=== PATIENT | female | born 1990 ===

== ENCOUNTER 2017-01-31 11:51 | Emergency (ER) | payer OTHER ==
--- NOTE | 2017-01-31 12:13 | C.PDOC ---
History Of Present Illness 26-year-old female, presents to the emergency department with complaints of chest pain. Patient states she has been experiencing chest pain for the past few days, that is non-radiating and intermittent in nature. Pain is worse w/ movement and deep breaths. Patient has not taken any medication for pain. Denies trauma. Of note, patient is on control (DMPA Q3 months). Time Seen by Provider: 01/31/17 12:09 Chief Complaint (Nursing): Chest Pain History Per: Patient History/Exam Limitations: no limitations Onset/Duration Of Symptoms: Days Current Symptoms Are (Timing): Still Present Severity: Moderate Past Medical History Reviewed: Historical Data, Nursing Documentation, Vital Signs Vital Signs: Last Vital Signs Temp 97.8 F 01/31/17 14:00 Pulse 65 01/31/17 14:00 Resp 20 01/31/17 14:00 BP 107/62 01/31/17 14:00 Pulse Ox 99 01/31/17 14:00 Family History: States: No Known Family Hx Review Of Systems Constitutional: Negative for: Fever, Chills Cardiovascular: Positive for: Chest Pain Gastrointestinal: Negative for: Nausea, Vomiting Skin: Negative for: Rash Neurological: Negative for: Weakness, Numbness Physical Exam - Physical Exam Appears: Non-toxic, No Acute Distress Skin: Warm, Dry, No Rash Head: Atraumatic Eye(s): bilateral: Normal Inspection Nose: Normal Oral Mucosa: Moist Neck: Normal ROM Cardiovascular: Rhythm Regular, No Murmur Respiratory: No Accessory Muscle Use Extremity: Normal ROM Neurological/Psych: Oriented x3 ED Course And Treatment - Laboratory Results Result Diagrams: 01/31/17 12:50 01/31/17 12:50 O2 Sat by Pulse Oximetry: 100 Medical Decision Making Medical Decision Making: EKG Rate 97bpm Rhythm NSR Interpret Normal [place]. Normal intervals. No aciute ischemia. 1330 pt reports feeling better after toradol. disc results, plan for rx, follow up, and rtr. Disposition - Disposition Referrals: [facility] at [facility] [Outside] Disposition: HOME/ ROUTINE Disposition Time: 13:34 Condition: IMPROVED Additional Instructions: Please follow up with a primary doctor. Return to the ER for any worsening symptoms or for any other concerns. Prescriptions: Naproxen [Naprosyn] 500 mg PO Q12H PRN #10 tablet PRN Reason: Pain, Moderate (4-7) Instructions: Chest Wall Pain (ED), Back Exercises (ED) Forms: General Discharge Instructions, Work Excuse - Clinical Impression Clinical Impression: Chest wall pain - Scribe Statement The provider has reviewed the documentation as recorded by the Patricaiblilibeth Goel All medical record entries made by the Patricaibe were at my direction and personally dictated by me. I have reviewed the chart and agree that the record accurately reflects my personal performance of the history, physical exam, medical decision making, and the department course for this patient. I have also personally directed, reviewed, and agree with the discharge instructions and disposition.
[2017-01-31 12:53] LABS: BASO % 0.7 % (0.0-2.0); EOS # 0.2 K/uL (0.0-0.7); EOS % 3.7 % (0.0-4.0); HEMATOCRIT 39.6 % (34.0-47.0); LYMPH # 1.8 K/uL (1.0-4.3); LYMPH % 43.4 % (20.0-40.0); MEAN CELL VOLUME 92.7 fL (81.0-99.0); MEAN CORPUSCULAR HEMOGLOBIN 31.2 pg (27.0-31.0); MEAN CORPUSCULAR HGB CONC 33.6 g/dL (33.0-37.0); MEAN PLATELET VOLUME 10.4 fL (7.2-11.7); MONO # 0.3 K/uL (0.0-0.8); MONO % 7.7 % (0.0-10.0); RED CELL DISTRIBUTION WIDTH 12.9 % (11.5-14.5); WHITE BLOOD COUNT 4.2 K/uL (4.8-10.8)
[2017-01-31 13:02] LABS: CHLORIDE 103 mmol/L (98-107); SODIUM 137 mmol/L (132-148)
[2017-01-31 13:04] LABS: BILIRUBIN,TOTAL 1.1 mg/dL (0.2-1.3); CARBON DIOXIDE 23 mmol/L (22-30); GFR AFRICAN-AMERICAN > 60
[2017-01-31 13:05] LABS: ALB/GLOB RATIO 1.4 (1.0-2.1); ALKALINE PHOSPHATASE 49 U/L (38-126); ALT/SGPT 15 U/L (9-52); AST/SGOT 26 U/L (14-36); BLOOD UREA NITROGEN 11 mg/dL (7-17); CALCIUM 9.1 mg/dl (8.6-10.4); GLUCOSE,RANDOM 93 mg/dL (65-105); TOTAL PROTEIN 7.8 g/dL (6.3-8.3)
--- NOTE | 2017-01-31 13:40 | RAD ---
HISTORY: cp COMPARISON: No prior. TECHNIQUE: Chest PA and lateral FINDINGS: LUNGS: No active pulmonary disease. PLEURA: No significant pleural effusion identified. No pneumothorax apparent. CARDIOVASCULAR: Normal. OSSEOUS STRUCTURES: No significant abnormalities. VISUALIZED UPPER ABDOMEN: Normal. OTHER FINDINGS: None. IMPRESSION: No active disease.
[2017-01-31 14:02] VITALS: BP 107/62; PULSE 65; RESP 20; TEMP 97.8
--- NOTE | 2017-02-01 23:02 | CARD ---
APPROVED REPORT EKG Measurement Heart [id number] <Conclusion> Normal sinus rhythm Minimal voltage criteria for LVH, may be normal variant Borderline ECG
[2017-02-02 08:03] VITALS: O2SAT 100
== END 2017-01-31 14:01 | disposition home or self-care (01) ==
LOC: C.ER 11:51
DX: R07.89 Other chest pain (principal)
CPT/HCPCS: 71020; 80053; 84484; 84703; 85025; 85378; 93005; 96374; 99284; J1885

== ENCOUNTER 2017-02-01 12:15 | Emergency (ER) | payer OTHER ==
[2017-02-01 16:50] VITALS: BMI 25.8
--- NOTE | 2017-02-07 20:50 | CARD ---
APPROVED REPORT EKG Measurement Heart [id number] 140P59 [id number] <Conclusion> Normal sinus rhythm with sinus arrhythmia Minimal voltage criteria for LVH, may be normal variant Borderline ECG
== END 2017-02-01 15:00 | disposition home or self-care (01) ==
LOC: C.ER 12:15
DX: R07.89 Other chest pain (principal)

== ENCOUNTER 2018-08-12 10:17 | Emergency (ER) | payer OTHER ==
[2018-08-12 10:17] VITALS: BMI 25.8
[2018-08-12 10:24] VITALS: RESP 18
--- NOTE | 2018-08-12 11:53 | C.PDOC ---
History Of Present Illness 27 year old female, with no significant past medical history, presents to the ED for evaluation of pain to her jaw and under her tongue which began 3 days ago. Patient states she experiences pain with bending her neck down and sticking her tongue out. She also reports cough. Patient has been drinking tea and taking theraflu without significant relief. She denies fever, chills, ear pain, runny nose, neck stiffness, or trouble breathing and swallowing. Time Seen by Provider: 08/12/18 10:40 Chief Complaint (Nursing): ENT Problem History Per: Patient History/Exam Limitations: None Onset/Duration Of Symptoms: Days (3) Current Symptoms Are (Timing): Still Present Past Medical History Reviewed: Historical Data, Nursing Documentation, Vital Signs Vital Signs: Last Vital Signs Temp 98 F 08/12/18 10:20 Pulse 92 H 08/12/18 10:20 Resp 18 08/12/18 10:20 BP 113/76 08/12/18 10:20 Pulse Ox 98 08/12/18 10:20 - Medical History PMH: No Chronic Diseases Surgical History: No Surg Hx Family History: States: Unknown Family Hx - Social History Hx Alcohol Use: Yes Hx Substance Use: Yes - Immunization History Hx Tetanus Toxoid Vaccination: No Hx Influenza Vaccination: Yes Hx Pneumococcal Vaccination: No Review Of Systems Constitutional: Negative for: Fever, Chills ENT: Positive for: Mouth Pain. Negative for: Ear Pain, Nose Discharge Respiratory: Positive for: Cough. Negative for: Shortness of Breath Physical Exam - Physical Exam Appears: Non-toxic, No Acute Distress Skin: Normal Color, Warm, Dry Head: Atraumatic, Tenderness (submandibular ) Eye(s): bilateral: Normal Inspection Oral Mucosa: Moist Throat: Normal, No Erythema, No Exudate, No Drooling, Other (no tonsillar swelling, uvula at midline ) Neck: Normal ROM, Supple, Other (slight edema to left side of neck ) Chest: Symmetrical, No Deformity, No Tenderness Cardiovascular: Rhythm Regular Respiratory: Normal Breath Sounds, No Rales, No Rhonchi, No Wheezing, Other (speaking in full sentences ) Extremity: Normal ROM Neurological/Psych: Oriented x3, Normal Speech, Normal Cognition ED Course And Treatment O2 Sat by Pulse Oximetry: 98 (on RA) Pulse Ox Interpretation: Normal Medical Decision Making Medical Decision Making: Progress: TSH ordered and reviewed. Disposition Counseled Patient/Family Regarding: Studies Performed, Diagnosis, Need For Followup, Rx Given - Disposition Referrals: Ayan Leyva MD [Staff Provider] - Disposition: HOME/ ROUTINE Disposition Time: 12:34 Condition: STABLE Prescriptions: Ibuprofen [Motrin] 600 mg PO TID #12 tab Forms: [facility] (Bruneian), Work Excuse, General Discharge Instructions - POA Present On Arrival: None - Clinical Impression Clinical Impression: Acute pain of mouth - Scribe Statement The provider has reviewed the documentation as recorded by the Scribe (Ekta iHlario) Provider Attestation: All medical record entries made by the Scribe were at my direction and personally dictated by me. I have reviewed the chart and agree that the record accurately reflects my personal performance of the history, physical exam, medical decision making, and the department course for this patient. I have also personally directed, reviewed, and agree with the discharge instructions and disposition.
[2018-08-12 12:48] VITALS: BP 115/70; PULSE 61; TEMP 97.7; O2SAT 97
== END 2018-08-12 12:52 | disposition home or self-care (01) ==
LOC: C.ER 10:17
DX: K13.79 Other lesions of oral mucosa (principal)

== ENCOUNTER 2019-01-23 09:02 | Emergency (ER) | payer MEDICAID, OTHER ==
[2019-01-23 09:03] VITALS: BMI 25.8
[2019-01-23 09:18] VITALS: BP 137/82; PULSE 85; RESP 18; TEMP 98.7; O2SAT 99
--- NOTE | 2019-01-23 09:48 | C.PDOC ---
History Of Present Illness Patient is a 28 year old female who presents to the ED to be seen along with her child who were both exposed to sick contacts at home. Patient reports that her younger sister had a sore throat and was treated for the same. Patient is presently c/o sore throat and white patchy spots in the back of her throat. She rates her non-radiating pain as a 7/10 for the past 2 days. She denies any documented fever, chills, nausea, vomiting, or runny nose. Time Seen by Provider: 01/23/19 09:19 Chief Complaint (Nursing): ENT Problem History Per: Patient History/Exam Limitations: None Onset/Duration Of Symptoms: Days (2) Current Symptoms Are (Timing): Still Present Pain Scale Rating Of: 7 Past Medical History Reviewed: Historical Data, Nursing Documentation, Vital Signs Vital Signs: Last Vital Signs Temp 98.7 F 01/23/19 09:15 Pulse 85 01/23/19 09:15 Resp 18 01/23/19 09:15 BP 137/82 01/23/19 09:15 Pulse Ox 99 01/23/19 09:15 Primary Care Provider: FAMILY PROVIDER,NO - Medical History PMH: No Chronic Diseases Surgical History: No Surg Hx Family History: States: Unknown Family Hx - Social History Hx Alcohol Use: Yes Hx Substance Use: Yes - Immunization History Hx Tetanus Toxoid Vaccination: No Hx Influenza Vaccination: Yes Hx Pneumococcal Vaccination: No Review Of Systems Constitutional: Negative for: Fever, Chills ENT: Positive for: Throat Pain, Other (white patches at back of throat). Negative for: Nose Discharge Gastrointestinal: Negative for: Nausea, Vomiting Physical Exam - Physical Exam Appears: Non-toxic, No Acute Distress, Other (afebrile) Ear(s): Bilateral: Normal Throat: Erythema (posterior pharynx ), Exudate (posterior pharynx), Other (tonsils enlarged) Cardiovascular: Rhythm Regular Respiratory: No Rales, No Rhonchi, No Wheezing Gastrointestinal/Abdominal: Soft, No Tenderness Neurological/Psych: Oriented x3, Other (awake and alert) ED Course And Treatment O2 Sat by Pulse Oximetry: 99 (on RA ) Pulse Ox Interpretation: Normal Medical Decision Making Medical Decision Making: Plan: Tylenol 975mg PO Motrin 600mg PO Patient was treated for pharyngitis. Disposition Counseled Patient/Family Regarding: Diagnosis, Need For Followup, Rx Given - Disposition Referrals: [facility] at [facility] [Outside] Disposition: HOME/ ROUTINE Disposition Time: 09:45 Condition: STABLE Additional Instructions: Take medications as indicated. Follow up with your doctor or our clinic. Prescriptions went to your preferred pharmacy. Prescriptions: Azithromycin 250 mg PO DAILY #6 tablet Azithromycin 600 mg PO TID #15 tablet Instructions: Strep Throat (DC) Forms: General Discharge Instructions, [facility] (German), Work Excuse - POA Present On Arrival: None - Clinical Impression Clinical Impression: Strep pharyngitis - Scribe Statement The provider has reviewed the documentation as recorded by the Shawn Crawford All medical record entries made by the Shawn were at my direction and personally dictated by me. I have reviewed the chart and agree that the record accurately reflects my personal performance of the history, physical exam, medical decision making, and the department course for this patient. I have also personally directed, reviewed, and agree with the discharge instructions and disposition.
== END 2019-01-23 10:18 | disposition home or self-care (01) ==
LOC: C.ER 09:02
DX: J02.0 Streptococcal pharyngitis (principal)